=== PATIENT | male | born 1945 | race Caucasian/White ===

== ENCOUNTER → 2024-01-26 14:38 | Outpatient (CLI) | payer MEDICARE, SELFPAY | PROVIDERS: Visit Provider Urology | DX: R31.9 Hematuria, unspecified (principal); R97.20 Elevated prostate specific antigen [PSA]; N40.1 Benign prostatic hyperplasia with lower urinary tract symptoms; N13.8 Other obstructive and reflux uropathy; Z68.25 Body mass index [BMI] 25.0-25.9, adult | CPT/HCPCS: 81002; 87086; 99214 ==

== ENCOUNTER → 2024-03-15 13:57 | Outpatient (CLI) | payer MEDICARE, SELFPAY ==
--- NOTE | 2024-03-15 13:59 | DI.MRI.S_ITS ---
PROCEDURE: MR PELIS WO/W CON INDICATIONS: Elevated prostate specific antigen [PSA] TECHNIQUE: Coronal HASTE, axial T1 FSE with fat saturation, 3-plane nonbreath-hold T2 FSE. After the administration of contrast, dynamic axial, delayed axial and coronal VIBE or 2-D FLASH with fat saturation through the pelvis. Diffusion weighted imaging and ADC was performed. COMPARISON: None. FINDINGS: Image quality: Significant compromise in image quality secondary to left hip metallic hardware and moderate amount of colonic and rectal gas. Prostate: Gland size is 2.6 x 4.2 x 3.3 cm; ellipsoid gland volume is 18.7 mL. Lesion 1: Location: Right posterolateral peripheral zone at the mid gland level, on axial series five, image 12 and coronal series six, image 13. Size: 1.0 cm. T2W signal: Hypointense DWI signal: Markedly hyperintense. ADC signal: Markedly hypointense. Enhancement: Yes Extracapsular extension: No PI-RADS score: Four Lesion 2: An amorphous lesion on the left peripheral zone near the gland apex is seen on postcontrast sequences, not well defined on T2 or diffusion imaging due to artifact. Genitourinary system: Bladder is partially filled. There is a probable 1.5 cm stone layering dependently along the posterior wall. Distal ureters are nondilated. Bowel and peritoneum: Increased quantity of solid stool in the colon and rectum. Nodes and vessels: No pelvic or inguinal adenopathy by size criteria. Iliac vessels are normal in caliber. Soft tissues: No inguinal hernias. Bones: All the bones are not well evaluated due to artifact from left hip hardware. No definite enhancing lesions. IMPRESSION: PI-RADS four lesion in the right peripheral zone at the mid gland level. A 2nd lesion in the left apex cannot be excluded due to adjacent artifact. No pelvic lymphadenopathy by size criteria. No aggressive osseous abnormality. Dictated by: eDidra Curran M.D. on 03/15/2024 at 17:55 Approved by: Deidra Curran M.D. on 03/15/2024 at 18:08
== END ==
LOC: MRI 13:58
PROVIDERS: Referring Provider Urology; Visit Provider Urology
DX: R97.20 Elevated prostate specific antigen [PSA] (principal); N42.9 Disorder of prostate, unspecified
CPT/HCPCS: 72197; A9579

== ENCOUNTER 2024-07-16 13:25 | Emergency (ER) | payer MEDICARE, SELFPAY ==
[2024-07-16] VITALS (14 sets, daily range): BP systolic 108–177; BP diastolic 58–84; PULSE 54–76; RESP 17–34; TEMP 36.2; O2SAT 92–100
--- NOTE | 2024-07-16 13:12 | EKG_ITS ---
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
--- NOTE | 2024-07-16 13:53 | ED.GENADULT ---
HPI - General Adult General Chief complaint: Syncope Stated complaint: near syncope Time Seen by Provider: 07/16/24 13:29 Source: patient Mode of arrival: Ambulatory History of Present Illness HPI narrative: 79-year-old gentleman history of CVA an elevated PSA greater than 8 was getting a biopsy of his prostate when when he had few episodes of vomiting with complaints of epigastric pain radiating to the rectum and had a near syncopal episode brought in for further evaluation here in the ER. He is now currently asymptomatic having no chest pain shortness breath nausea vomiting diarrhea but feels the urge to have a bowel movement. Denies headache dizziness blurred vision cough runny nose sore throat. Other than what is stated 14 point review of system is negative Related Data Home Medications Medication Instructions Recorded Confirmed aspirin 81 mg tablet,delayed 81 mg PO DAILY 01/26/24 07/16/24 release (Adult Low Dose Aspirin) Previous Rx's Medication Instructions Recorded levofloxacin 750 mg tablet 750 mg PO DAILY #2 tabs 07/02/24 Allergies Allergy/AdvReac Type Severity Reaction Status Date / Time No Known Drug Allergies Allergy Verified 07/16/24 11:29 Review of Systems Review of Systems ROS Unobtainable: All systems reviewed & are unremarkable except as noted in HPI and below Patient History Medical History Ataxic gait Nocturia Stroke (cerebrum) Social History Smoking Status: Never smoker Smoking Status: Never smoker Exam Narrative Exam Narrative: GENERAL: [79] year old patient appears stated age. Well-developed patient, in mild distress. HEAD: Atraumatic. Normocephalic. EYES: Pupils equal round and reactive. Extraocular motions intact. No scleral icterus. No injection or drainage. ENT: Nose without bleeding, purulent drainage. Throat without erythema, tonsillar hypertrophy or exudate. Airway patent. NECK: Trachea midline. Non tender CARDIOVASCULAR: Regular rate and rhythm without murmurs, gallops, or rubs. RESPIRATORY: Clear to auscultation. Breath sounds equal bilaterally. No wheezes, rales, or rhonchi. GASTROINTESTINAL: Abdomen soft, non-tender, nondistended. EXTREMITIES: No edema or joint tenderness. BACK: Nontender without deformity or crepitance. No flank tenderness. NEURO: AOx3. Nonfocal neuro exam. Axox4 GCS 15 SKIN: No rash or erythema of visible areas Initial Vital Signs Initial Vital Signs: Vital Signs Temperature 97.1 F L 07/16/24 13:09 Pulse Rate 56 L 07/16/24 13:09 Respiratory Rate 20 07/16/24 13:09 Blood Pressure 128/60 07/16/24 13:09 Pulse Oximetry 100 07/16/24 13:09 Oxygen Delivery Method Room Air 07/16/24 13:09 Course Orders Ordered: ED Orders 07/16/24 13:22 Complete Blood Count AUTO DIFF Stat Comprehensive Metabolic Panel Stat Lipase Stat 07/16/24 13:54 CT abdomen pelvis w con Stat 07/16/24 13:55 CT head/brain wo con Stat 07/16/24 15:35 Urine Microscopic Stat Discontinued Medications Sodium Chloride (Normal Saline 0.9%) 1,000 mls @ 1,000 mls/hr IV BOLUS ONE Stop: 07/16/24 14:52 Last Infusion: 07/16/24 15:28 Dose: Infused Documented By: Admin: 07/16/24 14:16 Dose: 1,000 mls/hr Documented By: JOSH Lactated Ringer's (Lactated Ringers) 500 mls @ 1,000 mls/hr IV BOLUS ONE Stop: 07/16/24 15:06 Last Admin: 07/16/24 15:54 Dose: 1,000 mls/hr Documented By: JOSH Morphine Sulfate (Morphine 4 Mg/Ml Inj) 4 mg IV NOW ONE Stop: 07/16/24 15:30 Last Admin: 07/16/24 15:32 Dose: 4 mg Documented By: JOSH Ondansetron HCl (Ondansetron 4 Mg/2 Ml Inj) 4 mg IV NOW ONE Stop: 07/16/24 13:54 Last Admin: 07/16/24 14:01 Dose: Not Given Documented By: JOSH Vital Signs Vital signs: Vital Signs - 8 hr 07/16/24 13:09 07/16/24 13:12 07/16/24 13:30 Temperature 97.1 F L Pulse Rate 56 L 58 L 54 L Respiratory Rate 20 26 H Blood Pressure 128/60 Pulse Oximetry 100 100 100 Oxygen Delivery Method Room Air 07/16/24 14:00 07/16/24 14:19 07/16/24 14:19 Temperature Pulse Rate 65 62 Respiratory Rate 22 Blood Pressure 108/58 L Pulse Oximetry 98 98 Oxygen Delivery Method 07/16/24 14:30 07/16/24 15:35 07/16/24 15:36 Temperature Pulse Rate 71 68 68 Respiratory Rate 27 H 20 Blood Pressure Pulse Oximetry 94 98 100 Oxygen Delivery Method 07/16/24 15:36 07/16/24 15:47 07/16/24 15:47 Temperature Pulse Rate 66 Respiratory Rate 34 H Blood Pressure 155/73 H 141/65 H Pulse Oximetry 92 Oxygen Delivery Method Medical Decision Making Lab Data 07/16/24 13:22 07/16/24 13:22 Labs: Lab Results 07/16/24 07/16/24 Range/Units 13:22 15:35 WBC 11.6 H (4.5-11.0) X10^3/uL RBC 4.37 L (4.5-5.9) X10^6/uL Hgb 13.3 L (13.5-17.5) g/dL Hct 39.8 L (41-53) % MCV 91.1 (80-100) fL MCH 30.4 (26-34) PG MCHC 33.4 (30-36) % RDW 15.2 H (11.6-14.8) % Plt Count 164 (150-400) X10^3/uL Neut % (Auto) 86.6 H (50-75) % Lymph % (Auto) 8.1 L (25-40) % [place] % (Auto) 4.7 (3-14) % Eos % (Auto) 0.3 L (2-4) % Baso % (Auto) 0.3 (0-2) % Neut # (Auto) 69372 H (4321-1174) /uL Lymph # (Auto) 900 L (7403-6862) /uL [place] # (Auto) 500 (0-900) /uL Eos # (Auto) 0 (0-450) /uL Baso # (Auto) 0 (0-100) /uL Sodium 137 (137-145) mmol/L Potassium 3.8 (3.4-5.1) mmol/L Chloride 104 (98-107) mmol/L Carbon Dioxide 23 (22-32) mmol/L BUN 16 (9-20) mg/dL Creatinine 0.64 L (0.66-1.25) mg/dL Estimated GFR > 60 (>60) mL/min BUN/Creatinine Ratio 25.0 H (6-22) Glucose 141 H (70-99) mg/dL Calcium 8.7 (8.4-10.2) mg/dL Total Bilirubin 0.7 (0.2-1.3) mg/dL AST 27 (17-59) IU/L ALT 17 (<50) IU/L Alkaline Phosphatase 78 (38-126) U/L Total Protein 6.9 (6.3-8.2) g/dL Albumin 4.0 (3.5-5.0) g/dL Globulin 2.9 (1.7-4.1) g/dL Albumin/Globulin Ratio 1.4 (1.0-2.8) Lipase 98 (23-300) U/L Urine RBC 10-30/hpf H (0-5/HPF) Urine WBC 1-5/hpf (0-5/HPF) Ur Squamous Epith Cells 0-1 /hpf (0-5/HPF) Urine Bacteria Few (2-10) H (None) Urine Mucus 2+ H (Negative) Urine Sperm Present Ur Culture Indicated? Cult not indicated Urine Dip Bedside Urine Glucose Negative Bedside Urine Bilirubin - Negative Bedside Urine Ketone ++ 40 Urine Specific [place] 1.015 Bedside Urine Occult Blood +++ Bedside Urine pH 6.0 Bedside Urine Protein +/- 15 Bedside Urine Urobilinogen +/- 1mg Bedside Urine Nitrite - Negative Bedside Urine Leukocytes - Negative Esterase Point of care testing: Urine Dip Bedside Urine Glucose Negative Bedside Urine Bilirubin - Negative Bedside Urine Ketone ++ 40 Urine Specific [place] 1.015 Bedside Urine Occult Blood +++ Bedside Urine pH 6.0 Bedside Urine Protein +/- 15 Bedside Urine Urobilinogen +/- 1mg Bedside Urine Nitrite - Negative Bedside Urine Leukocytes - Negative Esterase Imaging Data CT scan - abdomen/pelvis: Radiologist's Impression: [address] [address] [address] Scan Report Signed Patient: Romulo Lyons MR#: [id number] : 1945 Acct:[id number] Age/Sex: 79 / M Date of Service: 07/16/24 Loc: ED Accession Number: [id number] Procedure: CT abdomen pelvis w con Ordering Provider: Kulwinder Hunter D.O. PROCEDURE: CT ABDOMEN PELVIS W CON INDICATIONS: abd pain/n/v TECHNIQUE: After the administration of intravenous contrast, axial sections acquired from the lung bases to the pubic symphysis. Coronal and sagittal reformats were performed. For radiation dose reduction, the following was used: automated exposure control, adjustment of mA and/or kV according to patient size. COMPARISON: None. FINDINGS: Image quality: Diagnostic. Lower Chest: Normal heart size. Severe coronary artery calcifications. Extreme lung bases are clear. ABDOMEN: Liver: No solid mass. Gallbladder: No radiopaque gallstones or wall thickening. Biliary ducts: No biliary dilation. Pancreas: No ductal dilation. Spleen: Size is within normal limits. Adrenal Glands: No adrenal nodules. Kidneys and Ureters: No hydronephrosis. No solid mass. No complex renal cystic lesion which requires follow up. Stomach and Bowel: Normal colonic caliber, without significant wall thickening. Peritoneum: No abnormal intraperitoneal fluid. No free air. Ventral Wall: No significant ventral hernia. Abdominal Nodes: No retroperitoneal or mesenteric adenopathy by size criteria. Vessels: Aorta and inferior vena cava are normal in size. PELVIS: Pelvic Organs: Unremarkable. Bladder: No bladder wall thickening, accounting for underdistention. Dependent posterior bladder stone. Pelvic Nodes: No enlarged lymph nodes. Miscellaneous: No inguinal hernias are seen. Bones: No aggressive osseous abnormality. Diffuse lumbar degenerative change. IMPRESSION: 1. No acute abdominal process. 2. Note made of the presence of a bladder stone. 3. Severe coronary artery calcifications. Dictated by: Shawn Patricia M.D. on 07/16/2024 at 15:55 Approved by: Shawn Patricia M.D. on 07/16/2024 at 15:59 [place] [address] CT Scan Report Signed Patient: Romulo Lyons MR#: [id number] : 1945 Acct:[id number] Age/Sex: 79 / M Date of Service: 07/16/24 Loc: ED Accession Number: [id number] Procedure: CT head/brain wo con Ordering Provider: Kulwinder Hunter D.O. PROCEDURE: CT HEAD/BRAIN WO CON INDICATIONS: near syncope TECHNIQUE: Noncontrast 4.5 mm thick angled axial sections acquired from the foramen magnum to the vertex, with coronal and sagittal reformats. For radiation dose reduction, the following was used: automated exposure control, adjustment of mA and/or kV according to patient size. COMPARISON: None. FINDINGS: Image quality: Diagnostic. CSF spaces: Basal cisterns are patent. No extra-axial fluid collections. The ventricles are symmetric in size and shape. Brain: No intracranial bleeds or mass effect. There is cerebral volume loss, with resultant ventricular and sulcal prominence. There are periventricular and deep white matter chronic small vessel ischemic changes. There is intracranial internal carotid artery atherosclerosis. Skull and face: Calvarium and visualized facial bones appear intact, without suspicious lesions. Sinuses: Visualized sinuses and mastoids are clear. IMPRESSION: No acute intracranial pathology. Dictated by: Shawn Patricia M.D. on 07/16/2024 at 15:52 Approved by: Shawn Patricia M.D. on 07/16/2024 at 15:53 ECG Data Interpretation: Sinus Mike 1st degree AV block HR 57 OR 238 QRS [address]-t wave change No previous EKG to compare against MDM Narrative Medical decision making narrative: All lab work, vital signs, nursing triage note, medication list, and all previous ER visits reviewed. Patient given Zofran morphine and lactated Ringer's 1 L bolus. Patient had a big bowel movement here in the ER prior to going to CT scan and is no longer having abdominal pain at this time. Bladder stone seen on CT scan with no other acute process patient will follow up with Urology. Differential diagnosis CVA, subarachnoid, subdural hemorrhage, STEMI, NSTEMI, dehydration, orthostatic, electrolyte derangement, constipation, small-bowel obstruction, and UTI. Will have patient follow up PCP 1-2 weeks for recheck. Discharge Plan Departure Patient Disposition: Home Clinical Impression: Near syncope Abdominal pain Qualifiers: Abdominal location: epigastric Qualified Code(s): R10.13 - Epigastric pain Instructions: DI for Syncope in Adults (Fainting) Activity Restrictions/Additional Instructions: Return with new or worsening symptoms. Follow up with PCP in 1-2 weeks for recheck. Follow up with urologist year regarding your bladder stone. Prescriptions: No Action levofloxacin 750 mg tablet 750 mg PO DAILY Qty: 2 0RF Rx Instructions: take one tab the morning before, the morning of and the morning after your procedure aspirin [Adult Low Dose Aspirin] 81 mg tablet,delayed release (DR/EC) 81 mg PO DAILY Referrals: Cinthia Vásquez ARNP [Primary Care Provider] - Stand Alone Forms: Patient Portal/API/Survey
[2024-07-16 14:04] LABS: Add Manual Diff / Slide Review NO; Basophils Absolute Auto 0 /uL (0-100); Basophils Percent Auto 0.3 % (0-2); Eosinophils Absolute Auto 0 /uL (0-450); Eosinophils Percent Auto 0.3 % (2-4); Hematocrit 39.8 % (41-53); Hemoglobin 13.3 g/dL (13.5-17.5); Lymphocytes Absolute Auto 900 /uL (1100-4500); Lymphocytes Percent Auto 8.1 % (25-40); Mean Corpuscular HGB Conc 33.4 % (30-36); Mean Corpuscular Hemoglobin 30.4 PG (26-34); Mean Corpuscular Volume 91.1 fL (80-100); Monocytes Absolute Auto 500 /uL (0-900); Monocytes Percent Auto 4.7 % (3-14); Neutrophils Absolute Auto 10000 /uL (1500-7000); Neutrophils Percent Auto 86.6 % (50-75); Platelet Count 164 X10^3/uL (150-400); Red Blood Cell Count 4.37 X10^6/uL (4.5-5.9); Red Cell Distribution Width 15.2 % (11.6-14.8); White Blood Cell Count 11.6 X10^3/uL (4.5-11.0)
[2024-07-16] MEDS: SODIUM CHLORIDE 0.9% 1,000 ML 1000 ML IV (14:16)
[2024-07-16 14:23] LABS: Alanine Aminotransferase 17 IU/L (<50); Albumin Globulin Ratio 1.4 (1.0-2.8); Alkaline Phosphatase 78 U/L (38-126); Aspartate Aminotransferase 27 IU/L (17-59); Bilirubin Total 0.7 mg/dL (0.2-1.3); Blood Urea Nitrogen 16 mg/dL (9-20); Calcium 8.7 mg/dL (8.4-10.2); Carbon Dioxide 23 mmol/L (22-32); Chloride 104 mmol/L (98-107); Estimated Glomerular Filt Rate > 60 mL/min (>60); Globulin 2.9 g/dL (1.7-4.1); Glucose 141 mg/dL (70-99); HEMOLYSIS < 15 (0-50); Lipase 98 U/L (23-300); Potassium 3.8 mmol/L (3.4-5.1); Sodium 137 mmol/L (137-145); Total Protein 6.9 g/dL (6.3-8.2)
--- NOTE | 2024-07-16 15:21 | PC.NURSE ---
Pt incontinent of stool and had copious bowel movement. Pt agreed to clothing being cut off to avoid spreading stool down legs. Full linen change & bed bath.
[2024-07-16] MEDS: MORPHINE 4 MG/ML INJ IV (15:32)
[2024-07-16] MEDS: LACTATED RINGERS 500 ML 1000 ML IV (15:54)
[2024-07-16 15:59] LABS: Bacteria Urine Few (2-10); Culture Indicated Urine Cult Not Indicated; Mucus Urine 2+ (Negative); RBC Urine 10-30/HPF (0-5/HPF); Sperm Urine PRESENT; Squamous Epithelial Cell Urine 0-1 /HPF (0-5/HPF); WBC Urine 1-5/HPF (0-5/HPF)
[2024-07-16 16:09] LABS: Urine Volume 10mL (spun)
== END 2024-07-16 17:36 | disposition home or self-care (01) ==
PROVIDERS: Emergency Provider Family Medicine
DX: R55 Syncope and collapse (principal); R10.13 Epigastric pain
CPT/HCPCS: 55700; 70450; 74177; 76942; 80053; 81003; 81015; 83690; 85025; 93005; 96361; 96374; 99213; 99284; J2270; Q9967